=== PATIENT | female | born 1965 | race Caucasian/White ===

== ENCOUNTER 2017-05-02 00:14 | Emergency (ER) | payer SELFPAY ==
[~2017-05-02] VITALS: Ht 162.6 cm; Wt 101.0 kg
[~2017-05-02 00:14] MED LIST: ASPI-1093 PO; ATEN-188 PO; GABA-531 PO; GLIM2 PO; INSLAN SQ; INSU100V SQ; LISI-662 PO; SIMV-259 PO; TRIA1TAB5 PO
[2017-05-02] MEDS ORDERED: humalog SQ (00:25)
[2017-05-02] MEDS ORDERED: AMIT25TA9 PO (00:25)
[2017-05-02 00:27] LABS: GLUCOSE,POINT OF CARE 390 MG/DL (70-110)
[2017-05-02] MEDS ORDERED: OMEP20 PO (00:27)
[2017-05-02] MEDS ORDERED: INSU100V12 SQ (00:27)
[2017-05-02 01:17] LABS: ADD UA MICROSCOPIC YES; APPEARANCE,URINE CLEAR (CLEAR); GLUCOSE, URINE (UA) >=1000 mg/dL (NEGATIVE); KETONES,URINE NEGATIVE (NEGATIVE); LEUKOCYTE ESTERASE ,URINE NEGATIVE (NEGATIVE); OCCULT BLOOD,URINE SMALL (NEGATIVE); PROTEIN,URINE NEGATIVE (NEGATIVE)
[2017-05-02 01:30] LABS: SQUAMOUS EPITHELIAL CELL,UR Moderate /LPF (None Seen)
[2017-05-02] MEDS ORDERED: SODIUM CHLORIDE 0.9% 500 ML IV ONE (01:30)
[2017-05-02 01:40] LABS: BASOPHILS % (AUTO) 0.1 % (0.0-2.0); EOSINOPHILS % (AUTO) 3.9 % (1.0-6.0); HEMATOCRIT 34.4 % (36-46); LYMPHOCYTES # (AUTO) 2.9 K/uL (1.0-4.8); LYMPHOCYTES % (AUTO) 38.3 % (22.0-44.0); MEAN CORPUSCULAR HEMOGLOBIN 27.6 pg (26.0-34.0); MEAN CORPUSCULAR HGB CONC 31.9 G/dL (31.0-37.0); MEAN CORPUSCULAR VOLUME 87 fL (80-100); MONOCYTES # (AUTO) 0.6 K/uL (0.1-1.0); MONOCYTES % (AUTO) 8.4 % (2.0-9.0); NEUTROPHILS # (AUTO) 3.7 K/uL (1.8-7.7); NEUTROPHILS % (AUTO) 49.3 % (40.0-70.0); PLATELET COUNT (AUTO) 139 K/uL (150-450); RED BLOOD CELL COUNT(AUTO) 3.97 MIL/uL (4.00-5.20); RED CELL DISTRIBUTION WIDTH 17.4 % (11.5-14.5); WHITE BLOOD COUNT (AUTO) 7.5 K/uL (4.5-11.0)
[2017-05-02 01:50] LABS: PROTHROMBIN TIME 10.5 SEC (9.4-11.6)
[2017-05-02 01:52] LABS: ANION GAP 10 mmol/L (8-16); CALCIUM, TOTAL 9.7 mg/dL (8.8-10.5); CARBON DIOXIDE 26 mmol/L (22-29); CHLORIDE 100 mmol/L (98-107); CREATININE 1.09 mg/dL (0.60-1.30); GLOMERULAR FILTR. RATE CALC 53 mL/min (>60); POTASSIUM 3.4 mmol/L (3.5-5.1); SODIUM SERUM 136 mmol/L (136-145); UREA NITROGEN, BLOOD 12 mg/dL (7-18)
[2017-05-02 01:58] LABS: RBC MORPHOLOGY COMMENT ABNORMAL RBC MORPH
[2017-05-02 02:21] LABS: ALANINE AMINOTRANSFERASE 94 U/L (12-78); ALBUMIN 3.1 g/dL (3.4-5.0); ASPARTATE AMINOTRANSFERASE 65 U/L (15-37); BILIRUBIN,TOTAL 0.7 mg/dL (0.1-1.0); CREATINE KINASE MB 1.4 ng/mL (0-5); CREATINE KINASE, TOTAL 183 U/L (26-192); TOTAL PROTEIN, SERUM 6.7 g/dL (6.4-8.2)
[2017-05-02 02:25] LABS: B-TYPE NATRIURETIC PEPTIDE < 5 pg/mL (0-100)
[2017-05-02 03:07] LABS: GLUCOSE,POINT OF CARE 306 MG/DL (70-110)
[2017-05-02 03:38] VITALS: BP 130/72
== END 2017-05-02 03:40 | disposition home or self-care (01) ==
LOC: EMS 00:15
DX: E11.65 Type 2 diabetes mellitus with hyperglycemia (principal); M54.16 Radiculopathy, lumbar region; Z79.4 Long term (current) use of insulin; I25.10 Atherosclerotic heart disease of native coronary artery without angina pectoris; I10 Essential (primary) hypertension; Z90.49 Acquired absence of other specified parts of digestive tract
CPT/HCPCS: 82962; 93005; 96360; 99285

== ENCOUNTER 2017-06-06 18:54 | Emergency (ER) | payer MEDICAID ==
[~2017-06-06] VITALS: Ht 157.5 cm; Wt 90.9 kg
[~2017-06-06 18:54] MED LIST changes: +AMIT25TA9 PO; -GABA-531 PO; -GLIM2 PO; -INSLAN SQ; -INSU100V SQ; +INSU100V12 SQ; +OMEP20 PO; -SIMV-259 PO; +humalog SQ
[2017-06-06 19:27] LABS: GLUCOSE,POINT OF CARE 244 MG/DL (70-110)
[2017-06-06 20:05] LABS: BASOPHILS % (AUTO) 0.7 % (0.0-2.0); EOSINOPHILS % (AUTO) 3.5 % (1.0-6.0); HEMATOCRIT 32.2 % (36-46); LYMPHOCYTES # (AUTO) 2.5 K/uL (1.0-4.8); LYMPHOCYTES % (AUTO) 30.2 % (22.0-44.0); MEAN CORPUSCULAR HEMOGLOBIN 29.1 pg (26.0-34.0); MEAN CORPUSCULAR HGB CONC 34.2 G/dL (31.0-37.0); MEAN CORPUSCULAR VOLUME 85 fL (80-100); MONOCYTES # (AUTO) 0.5 K/uL (0.1-1.0); MONOCYTES % (AUTO) 5.7 % (2.0-9.0); NEUTROPHILS # (AUTO) 4.9 K/uL (1.8-7.7); NEUTROPHILS % (AUTO) 59.9 % (40.0-70.0); PLATELET COUNT (AUTO) 121 K/uL (150-450); RED BLOOD CELL COUNT(AUTO) 3.77 MIL/uL (4.00-5.20); RED CELL DISTRIBUTION WIDTH 17.3 % (11.5-14.5); WHITE BLOOD COUNT (AUTO) 8.1 K/uL (4.5-11.0)
[2017-06-06 20:06] LABS: APPEARANCE,URINE CLOUDY (CLEAR); GLUCOSE, URINE (UA) 250 mg/dL (NEGATIVE); KETONES,URINE NEGATIVE (NEGATIVE); LEUKOCYTE ESTERASE ,URINE TRACE (NEGATIVE); OCCULT BLOOD,URINE NEGATIVE (NEGATIVE); PROTEIN,URINE NEGATIVE (NEGATIVE)
[2017-06-06 20:10] LABS: ANION GAP 9 mmol/L (8-16); CALCIUM, TOTAL 8.9 mg/dL (8.8-10.5); CARBON DIOXIDE 26 mmol/L (22-29); CHLORIDE 104 mmol/L (98-107); CREATININE 0.92 mg/dL (0.60-1.30); GLOMERULAR FILTR. RATE CALC > 60 mL/min (>60); POTASSIUM 3.4 mmol/L (3.5-5.1); SODIUM SERUM 139 mmol/L (136-145); UREA NITROGEN, BLOOD 13 mg/dL (7-18)
[2017-06-06 20:12] LABS: ADD UA MICROSCOPIC YES
[2017-06-06 20:15] LABS: ALANINE AMINOTRANSFERASE 102 U/L (12-78); ALBUMIN 3.1 g/dL (3.4-5.0); ASPARTATE AMINOTRANSFERASE 63 U/L (15-37); BILIRUBIN,TOTAL 0.6 mg/dL (0.1-1.0)
[2017-06-06 20:16] LABS: SQUAMOUS EPITHELIAL CELL,UR Moderate /LPF (None Seen)
[2017-06-06 20:17] LABS: RBC,URINE 0-2 /HPF (0-2)
[2017-06-06] MEDS ORDERED: MORPHINE SULFATE 4 MG/ML SYRINGE IM ONE (21:15)
[2017-06-06] MEDS ORDERED: METOCLOPRAMIDE HCL 5 MG/ML 2 ML VIAL IM ONE (21:15)
[2017-06-06 21:49] LABS: RBC MORPHOLOGY COMMENT ABNORMAL RBC MORPH
[2017-06-06 22:56] VITALS: BP 120/86
== END 2017-06-06 22:56 | disposition home or self-care (01) ==
LOC: EMS 18:55
DX: R10.11 Right upper quadrant pain (principal); I25.10 Atherosclerotic heart disease of native coronary artery without angina pectoris; I10 Essential (primary) hypertension; E11.9 Type 2 diabetes mellitus without complications; Z90.49 Acquired absence of other specified parts of digestive tract; Z79.4 Long term (current) use of insulin; Z79.82 Long term (current) use of aspirin; Z79.899 Other long term (current) drug therapy
CPT/HCPCS: 36415; 74010; 80053; 81001; 82962; 83690; 84703; 85025; 96372; 99285; J2270; J2765